=== PATIENT | female | born 1980 | race Caucasian/White ===

== ENCOUNTER 2020-06-13 13:50 | Inpatient (IN) | payer OTHER ==
[~2020-06-13] VITALS: Ht 160 cm; Wt 48.1 kg
[~2020-06-13 13:50] MED LIST: SYNTHROID50 MCG
[2020-06-17] MEDS ORDERED: TRAM1TAB98 PO (13:39)
[2020-06-17] MEDS ORDERED: PEPCID AC20 MG PO (13:39)
[2020-06-17] MEDS ORDERED: SYNTHROID50 MCG PO (13:39)
[2020-06-17] MEDS ORDERED: OMEPRAZOLE20 MG PO (13:39)
== END 2020-06-17 15:06 | disposition home or self-care (01) | DRG 418 ==
LOC: ER 13:50 → MEDI 20:23 → SURG 20:23 → MEDI 06-15 14:40
PROVIDERS: Surgery; ADMIT Internal Medicine Cardiovascular Disease; ATTEND Internal Medicine Cardiovascular Disease
PROC: 02HV33Z Insertion of Infusion Device into Superior Vena Cava, Percutaneous Approach (ICD-10-PCS; 2020-06-14)
PROC: BF14YZZ Fluoroscopy of Gallbladder, Bile Ducts and Pancreatic Ducts using Other Contrast (ICD-10-PCS; 2020-06-16)
PROC: 0FT44ZZ Resection of Gallbladder, Percutaneous Endoscopic Approach (ICD-10-PCS; principal; 2020-06-16 06:15)
DX: K85.10 Biliary acute pancreatitis without necrosis or infection (principal); K80.10 Calculus of gallbladder with chronic cholecystitis without obstruction; E03.9 Hypothyroidism, unspecified; N20.0 Calculus of kidney; Z20.828 Contact with and (suspected) exposure to other viral communicable diseases